=== PATIENT | male | born 1940 | race Caucasian/White ===

== ENCOUNTER → 2020-08-07 | Outpatient (CLI) | payer MEDICARE ==
[~2020-08-07] MED LIST: ASPIRIN ADULT L81 M1 PO; COZAAR25 M1 PO; METOPROLOL SUCC25 M2 PO; MULTI-VITAMIN1 EACH PO; OMEPRAZOLE40 MG PO; XARE20MG PO
== END | disposition home or self-care (01) ==
LOC: COVID19 15:01
PROVIDERS: ATTEND Ophthalmology
DX: Z01.812 Encounter for preprocedural laboratory examination (principal); Z20.822 Contact with and (suspected) exposure to COVID-19

== ENCOUNTER → 2020-08-12 | Day surgery (SDC) | payer MEDICARE ==
[~2020-08-12] VITALS: Ht 177.8 cm; Wt 97.5 kg
[2020-08-12 08:55] VITALS: BP 134/94
[2020-08-12 09:44] VITALS: BP 153/72
[2020-08-12 09:59] VITALS: BP 135/69
[2020-08-12 10:14] VITALS: BP 134/73
== END | disposition home or self-care (01) ==
LOC: SDC 08-07 10:15
PROVIDERS: ATTEND Ophthalmology
DX: H25.812 Combined forms of age-related cataract, left eye (principal); I25.10 Atherosclerotic heart disease of native coronary artery without angina pectoris; I10 Essential (primary) hypertension; I48.91 Unspecified atrial fibrillation; M19.90 Unspecified osteoarthritis, unspecified site; Z95.5 Presence of coronary angioplasty implant and graft; Z98.890 Other specified postprocedural states; Z96.653 Presence of artificial knee joint, bilateral; Z79.01 Long term (current) use of anticoagulants; Z79.899 Other long term (current) drug therapy; Z87.891 Personal history of nicotine dependence

== ENCOUNTER 2024-09-28 15:03 | Emergency (ER) | payer OTHER, MEDICARE ==
[~2024-09-28 15:03] MED LIST changes: +EZALLOR SPRINKL20 MG PO; +ISOSORBIDE DINI30 MG PO
[2024-09-28 15:40] LABS: BASO # 0.0 10*3/uL (0.0-0.1); BASO % 0.6 % (0.0-1.0); EOS # 0.2 10*3/uL (0.0-0.4); EOS % 3.5 % (1.0-4.0); MEAN CELL VOLUME 93.9 fl (80.0-94.0); MEAN CORPUSCULAR HGB 29.3 pg (27.0-31.0); MEAN PLATELET VOLUME 10.0 fl (9.6-12.3); MONO # 0.6 10*3/uL (0.1-1.0); MONO % 12.6 % (3.0-9.0); NEUT # 2.9 10*3/uL (2.3-7.9); NEUT % 60.2 % (47.0-73.0); NUCLEATED RED BLOOD CELL 0.0 % (0.0-0.0); NUCLEATED RED BLOOD CELL 0.0 10*3/uL (0.0-0.0); PLATELET COUNT AUTOMATED 136 10*3/uL (130-400); RED CELL DISTRI WIDTH 14.6 % (0-14.5)
[2024-09-28] MEDS ORDERED: IOHEXOL 300 MG/ML 100 ML VIAL IV ONE (15:45)
[2024-09-28 16:05] LABS: BUN 27.0 mg/dl (9-23); SGPT/ALT 20.0 U/L (5-49)
[2024-09-28] MEDS ORDERED: IOHEXOL 300 MG/ML 100 ML VIAL ONE (16:07)
[2024-09-28] MEDS ORDERED: TRAMADOL HCL50 MG PO (17:59)
[2024-09-28] MEDS ORDERED: Ondansetron4 MG PO (17:59)
== END 2024-09-28 18:29 | disposition home or self-care (01) ==
LOC: ED 15:03
PROVIDERS: Emergency Medicine
DX: S51.012A Laceration without foreign body of left elbow, initial encounter (principal); S16.1XXA Strain of muscle, fascia and tendon at neck level, initial encounter; S30.1XXA Contusion of abdominal wall, initial encounter; N28.9 Disorder of kidney and ureter, unspecified; I10 Essential (primary) hypertension; I25.10 Atherosclerotic heart disease of native coronary artery without angina pectoris; I48.91 Unspecified atrial fibrillation; Z96.651 Presence of right artificial knee joint; Z96.652 Presence of left artificial knee joint; Z95.0 Presence of cardiac pacemaker; V43.52XA Car driver injured in collision with other type car in traffic accident, initial encounter; Y93.89 Activity, other specified; Y92.410 Unspecified street and highway as the place of occurrence of the external cause; Y99.8 Other external cause status